=== PATIENT | male | born 1970 | race Caucasian/White ===

== ENCOUNTER 2017-10-03 12:06 | Emergency (ER) | payer MEDICAID, OTHER ==
--- NOTE | 2017-10-03 12:21 | CPEKG ---
Heart Rate: 85 RR Interval: 706 P-R Interval: 204 QRSD Interval: 98 QT Interval: 364 QTC Interval: 433 P [place]: 13 QRS [place]: 28 T Wave [place]: -20 EKG Severity - BORDERLINE ECG - EKG Impression: SINUS RHYTHM EKG Impression: BORDERLINE T ABNORMALITIES, INFERIOR LEADS Electronically Signed By: Yandel Patel 03-Oct-2017 15:23:25
[2017-10-03] MEDS ORDERED: ASPIRIN 81 MG CHEWABLE TAB PO ONE (12:27)
--- NOTE | 2017-10-03 12:29 | EDPHY ---
H & P Time Seen by Provider: 10/03/17 12:28 HPI/ROS: Chief complaint. Chest pain HPI. 47-year-old male presents emergency department with sharp left-sided chest pain for the past 3 days. It is worse with exertion as well as deep breathing. However it does appear that is likely more worse with deep breathing and that while he is lying on the stretcher tell me about this if he takes a deep breath that recreates his pain. He does note it is worse with going up stairs but not sure whether it is the exertion or deep breathing. Symptoms are gradually worsening. No fever cough. No similar symptoms previously. No unusual leg pain or swelling. He returned from [place] 1 week ago for hyperthermia treatments for Lyme disease. No shortness of breath. No radiation of the discomfort to his back neck or arm ROS Constitutional. no fever/chills, no weakness Eyes. no problems with vision ENT. no sore throat, no nasal drainage Cardiovascular. Left-sided chest pain Respiratory. no shortness of breath, no cough Abdominal. no abdominal pain, no nausea/vomiting, no diarrhea . no problems urinating MS. no calf pain/swelling, no neck/back pain, no joint pain Skin. no rash Lymph. no swollen glands Neuro. no headache, no dizziness, no difficulty walking or with speech Past Medical/Surgical History: Lyme disease, rheumatoid arthritis Social History: , nonsmoker, no alcohol Physical Exam: General Appearance: Alert well-developed male mild distress vital signs are stable though initial heart rate 98 Eyes: Pupils equal and round no pallor or injection. ENT, Mouth: Mucous membranes are moist. Respiratory: There are no retractions, lungs are clear to auscultation. Cardiovascular: Regular rate and rhythm. Gastrointestinal: Abdomen is soft and nontender, no masses, bowel sounds normal. Neurological: Awake and alert, sensory and motor exams grossly normal. Skin: Warm and dry, no rashes. Musculoskeletal: Neck is supple nontender. Extremities symmetrical, full range of motion. Psychiatric: Patient is oriented X 3, there is no agitation. Constitutional: Initial Vital Signs Temperature (C) 36.5 C 10/03/17 12:10 Heart Rate 98 10/03/17 12:10 Respiratory Rate 18 10/03/17 12:10 Blood Pressure 127/89 H 10/03/17 12:10 O2 Sat (%) 97 10/03/17 12:10 O2 Delivery Mode Room Air Allergies/Adverse Reactions: No Known Allergies Allergy (Unverified 10/03/17 12:09) Home Medications: Medication Instructions Recorded Methotrexate 10/03/17 Plaquenil 200 mg (*) 10/03/17 Medical Decision Making - Diagnostics EKG Interpretation: EKG interpreted by me shows normal sinus rhythm normal interval and axis. QRS shows S1 q3 T3 pattern. there is no significant ST elevation or depression. No arrhythmia. The rate is 85. Imaging Results: CT chest with IV contrast reviewed by me and discussed with Dr. Zhou shows no evidence of pulmonary embolus, pneumothorax, pneumonia Procedures: IV normal saline, monitor ED Course/Re-evaluation: Re-evaluation at 3:25 p.m.. The patient and I discussed imaging study results, treatment plan including criteria for return importance of follow-up further evaluation. He expresses understanding And agreement Of note the patient tells me that after we gave him the aspirin his discomfort is completely gone. He can take a deep breath without any discomfort. Differential Diagnosis: I considered pulmonary embolus, pneumonia, pneumothorax, acute coronary syndrome. This is likely musculoskeletal in etiology - Data Points Laboratory Results: Laboratory Results 10/03/17 12:20 10/03/17 12:20 10/03/17 10/03/17 10/03/17 12:20 12:20 12:20 WBC 7.52 10^3/uL 10^3/uL (3.80-9.50) RBC 4.84 10^6/uL 10^6/uL (4.40-6.38) Hgb 15.8 g/dL g/dL (13.7-17.5) Hct 44.8 % % (40.0-51.0) MCV 92.6 fL fL (81.5-99.8) MCH 32.6 pg pg (27.9-34.1) MCHC 35.3 g/dL g/dL (32.4-36.7) RDW 14.0 % % (11.5-15.2) Plt Count 350 10^3/uL 10^3/uL (150-400) MPV 9.9 fL fL (8.7-11.7) Neut % (Auto) 65.9 % % (39.3-74.2) Lymph % (Auto) 18.9 % % (15.0-45.0) [place] % (Auto) 13.2 % H % (4.5-13.0) Eos % (Auto) 0.8 % % (0.6-7.6) Baso % (Auto) 0.8 % % (0.3-1.7) Nucleat RBC Rel Count 0.0 % % (0.0-0.2) Absolute Neuts (auto) 4.96 10^3/uL 10^3/uL (1.70-6.50) Absolute Lymphs (auto) 1.42 10^3/uL 10^3/uL (1.00-3.00) Absolute Monos (auto) 0.99 10^3/uL H 10^3/uL (0.30-0.80) Absolute Eos (auto) 0.06 10^3/uL 10^3/uL (0.03-0.40) Absolute Basos (auto) 0.06 10^3/uL 10^3/uL (0.02-0.10) Absolute Nucleated RBC 0.00 10^3/uL 10^3/uL (0-0.01) Immature Gran % 0.4 % % (0.0-1.1) Immature Gran # 0.03 10^3/uL 10^3/uL (0.00-0.10) D-Dimer 0.40 ug/mLFEU ug/mLFEU (0.00-0.50) Sodium 145 mEq/L H mEq/L (134-144) Potassium 4.0 mEq/L mEq/L (3.5-5.2) Chloride 106 mEq/L mEq/L (97-110) Carbon Dioxide 26 mEq/l mEq/l (22-31) Anion Gap 13 mEq/L mEq/L (8-16) BUN 12 mg/dL mg/dL (7-23) Creatinine 0.9 mg/dL mg/dL (0.7-1.3) Estimated GFR > 60 Glucose 89 mg/dL mg/dL (70-100) Calcium 9.7 mg/dL mg/dL (8.5-10.4) Troponin I < 0.012 ng/mL ng/mL (0.000-0.034) Medications Given: Discontinued Medications Aspirin (Aspirin) 324 mg PO EDNOW ONE Stop: 10/03/17 12:28 Last Admin: 10/03/17 12:30 Dose: 324 mg Departure - Departure Disposition: Home, Routine, Self-Care Clinical Impression: Chest wall pain Condition: Good Instructions: Chest Pain (ED) Additional Instructions: Aspirin or ibuprofen 600 mg every 6 hr. Activity as tolerated. Return for worsening chest discomfort or trouble breathing. Recheck in 1-2 days if not continuing to improve Referrals: Judie Walters NP [Primary Care Provider] - 1 day, if not improved
[2017-10-03 12:31] LABS: PLATELET COUNT 350 10^3/uL (150-400)
[2017-10-03] MEDS ORDERED: IOPAMIDOL (ISOVUE-300) 100 ML BTL ONE (14:31)
[2017-10-03] MEDS ORDERED: IOPAMIDOL (ISOVUE 370) 100 ML BTL IV ONE (14:33)
[2017-10-03 15:00] VITALS: PULSE 81; RESP 16
[2017-10-03 15:46] VITALS: BP 145/76; TEMP 98.6; O2SAT 98
== END 2017-10-03 15:46 | disposition home or self-care (01) ==
DX: R07.89 Other chest pain (principal)
CPT/HCPCS: Q9967